=== PATIENT | female | born 1990 | race Caucasian/White ===

== ENCOUNTER 2020-11-27 13:42 | Emergency (ER) | payer OTHER ==
[~2020-11-27 13:42] MED LIST: IBUPROFEN800 MG PO; ROBAXIN750 MG PO
== END 2020-11-27 15:30 | disposition home or self-care (01) ==
LOC: FER 13:42
DX: U07.1 COVID-19 (principal); I10 Essential (primary) hypertension; J45.909 Unspecified asthma, uncomplicated; Z88.0 Allergy status to penicillin; Z88.1 Allergy status to other antibiotic agents
CPT/HCPCS: 71045; J1100

== ENCOUNTER 2021-07-24 10:21 | Emergency (ER) | payer OTHER ==
[~2021-07-24 10:21] MED LIST changes: +DEXAMETHASONE 2M2 MG PO; +NORCO 5-325 TA1 EACH PO; +PHENERGAN25 M1 PO
[2021-07-24] MEDS ORDERED: NAPROXEN500 MG PO (13:51)
[2021-07-24] MEDS ORDERED: ROBAXIN750 MG PO (13:51)
== END 2021-07-24 14:04 | disposition home or self-care (01) ==
LOC: FER 10:21
DX: S13.4XXA Sprain of ligaments of cervical spine, initial encounter (principal); S33.5XXA Sprain of ligaments of lumbar spine, initial encounter; S43.402A Unspecified sprain of left shoulder joint, initial encounter; Z88.0 Allergy status to penicillin; Z88.1 Allergy status to other antibiotic agents; V49.40XA Driver injured in collision with unspecified motor vehicles in traffic accident, initial encounter; Z28.310 Unvaccinated for COVID-19
CPT/HCPCS: 72040; 72072; 72100; 72170; 73030